=== PATIENT | female | born 1990 | race Caucasian/White ===

== ENCOUNTER 2020-06-24 19:19 | Emergency (ER) | payer OTHER ==
[2020-06-24 19:36] VITALS: BP 111/64; PULSE 82; TEMP 98.4; BMI 22.7
== END 2020-06-24 21:03 | disposition home or self-care (01) ==
LOC: JER 19:19
DX: B02.9 Zoster without complications (principal)
CPT/HCPCS: 99283-25

== ENCOUNTER 2020-11-07 03:18 | Inpatient (IN) | payer OTHER ==
[2020-11-07] MEDS ORDERED: ELECTROLYTE-148 SOLN 500 ML IV ONE (04:00)
[2020-11-07 04:27] VITALS: BMI 26.6
[2020-11-07] MEDS ORDERED: AMPICILLIN SODIUM 2 GM VIAL ONE (04:50)
[2020-11-07] MEDS ORDERED: AMPICILLIN - 2 GM in SODIUM CHLORIDE 100 ML IVPB ONE (05:00)
[2020-11-07] MEDS ORDERED: ELECTROLYTE-148 SOLN 1,000 ML IV SCH (05:15)
[2020-11-07 05:19] LABS: INR 0.9 (0.83-1.09); PROTHROMBIN TIME (PATIENT) 10.9 SEC (9.7-13.0)
[2020-11-07 05:22] LABS: ACTIVATED PTT 25.5 SECONDS (25.2-36.5); CALCIUM 8.4 mg/dL (8.5-10.1); POTASSIUM 3.9 mmol/L (3.5-5.1)
[2020-11-07 05:23] LABS: BLOOD UREA NITROGEN 13.2 mg/dL (7-18)
[2020-11-07 05:26] LABS: CREATININE 0.5 mg/dL (0.55-1.3)
[2020-11-07] MEDS ORDERED: OXYTOCIN 30 UNITS in 0.9% NS 30 UNIT/500 ML INFUS.BAG IVPB SCH (05:30)
[2020-11-07] MEDS ORDERED: PCA PUMP NR ONE (05:46)
[2020-11-07] MEDS ORDERED: FENTANYL/BUPIVACAINE/NS/PF - PCEA - 50 ML DISP.SYRIN EP ONE (05:47)
[2020-11-07] MEDS ORDERED: NALOXONE HCL 0.4 MG/ML VIAL IVPUSH PRN (05:47)
[2020-11-07] MEDS ORDERED: FENTANYL/BUPIVACAINE/NS/PF - PCEA - 50 ML DISP.SYRIN EP SCH (06:00)
[2020-11-07] MEDS ORDERED: OXYTOCIN 20 UNITS in 0.9% NS 20 UNIT/1,000 ML INFUS.BAG IV ONE ×2 (06:00→06:02)
[2020-11-07 06:23] LABS: BASO % 0.4 % (0-2.0); EOS % 1.5 % (0-4.5); HEMATOCRIT 29.6 % (32.4-45.2); HEMOGLOBIN 10.1 GM/dL (10.7-15.3); LYMPH % 21.6 % (8-40); MCH 32.5 pg (25.7-33.7); MEAN CELL VOLUME 95.4 fl (80-96); MEAN PLT VOLUME 8.2 fl (7.5-11.1); NEUT % 67.5 % (42.8-82.8); PLATELET COUNT 210 K/MM3 (134-434); RDW 13.1 % (11.6-15.6); WHITE BLOOD COUNT 9.4 K/mm3 (4.0-10.0)
[2020-11-07] MEDS ORDERED: IBUPROFEN 600 MG TABLET (FP) PO ONE (06:31)
[2020-11-07] MEDS ORDERED: ACETAMINOPHEN 325 MG TABLET (FP) ONE (06:32)
[2020-11-07] MEDS ORDERED: BENZOCAINE 20% 57 GM BOTTLE TP PRN (06:37)
[2020-11-07] MEDS ORDERED: BISACODYL 10 MG SUPP.RECT RC PRN (06:37)
[2020-11-07] MEDS ORDERED: BENZOCAINE 28 GM HEMORRHOIDAL OINTMENT TP PRN (06:37)
[2020-11-07] MEDS ORDERED: WITCH HAZEL 50% (TUCKS) 40 PAD/JAR PAD TP PRN (06:37)
[2020-11-07] MEDS ORDERED: METHYLERGONOVINE MALEATE 0.2 MG/1 ML AMP IM PRN (06:37)
[2020-11-07] MEDS ORDERED: ACETAMINOPHEN 325 MG TABLET (FP) PO PRN (06:37)
[2020-11-07] MEDS ORDERED: IBUPROFEN 600 MG TABLET (FP) PO PRN (06:37)
[2020-11-07] MEDS ORDERED: OXYTOCIN 20 UNITS in 0.9% NS 20 UNIT/1,000 ML INFUS.BAG IV SCH (06:45)
[2020-11-07] MEDS ORDERED: AMPICILLIN - 1 GM in SODIUM CHLORIDE 100 ML IVPB SCH (09:00)
[2020-11-07] MEDS: SERTRALINE HCL 50 MG TABLET (FP) PO SCH (10:17)
[2020-11-08 08:25] LABS: BASO % 0.5 % (0-2.0); EOS % 1.9 % (0-4.5); HEMATOCRIT 30.2 % (32.4-45.2); HEMOGLOBIN 10.4 GM/dL (10.7-15.3); LYMPH % 24.5 % (8-40); MCH 32.9 pg (25.7-33.7); MCHC 34.3 g/dl (32.0-36.0); MEAN CELL VOLUME 95.9 fl (80-96); MEAN PLT VOLUME 7.7 fl (7.5-11.1); MONO % 8.1 % (3.8-10.2); PLATELET COUNT 193 K/MM3 (134-434); RBC 3.15 M/mm3 (3.60-5.2); RDW 13.3 % (11.6-15.6); WHITE BLOOD COUNT 10.3 K/mm3 (4.0-10.0)
[2020-11-08] MEDS: SERTRALINE HCL 50 MG TABLET (FP) PO SCH (09:26)
[2020-11-08 13:13] VITALS: BP 103/66; PULSE 76; TEMP 97.8
[2020-11-08] MEDS ORDERED: SENNOSIDES/DOCUSATE COMBO (SENNA PLUS) TABLET (UD) PO PRN (22:00)
== END 2020-11-08 14:50 | disposition home or self-care (01) | DRG 560 ==
LOC: JLDR 03:18 → J3W 07:45
PROVIDERS: ADMIT Specialist; ATTEND Specialist
PROC: 10907ZC Drainage of Amniotic Fluid, Therapeutic from Products of Conception, Via Natural or Artificial Opening (ICD-10-PCS; principal; 2020-11-07)
PROC: 10E0XZZ Delivery of Products of Conception, External Approach (ICD-10-PCS; 2020-11-07)
DX: O48.0 Post-term pregnancy (principal); Z37.0 Single live birth; O70.0 First degree perineal laceration during delivery; O98.52 Other viral diseases complicating childbirth; B02.9 Zoster without complications; Z3A.40 40 weeks gestation of pregnancy
CPT/HCPCS: 36415; 59409; 80048; 85025; 85610; 85730; 86780; 86850; 86900; 86901; C9803; U0003; U0005